=== PATIENT | male | born 1965 | race Caucasian/White ===

== ENCOUNTER → 2024-10-02 09:14 | Outpatient (REF) | payer OTHER, SELFPAY | LOC: MRI 3T 09:14 | PROVIDERS: ATTENDING PHYSICIAN Physician Assistant Surgical; FAMILY PHYSICIAN Family Medicine | DX: M25.512 Pain in left shoulder (principal) | CPT/HCPCS: 73221 ==

== ENCOUNTER 2024-11-29 06:20 | Day surgery (SDC) | payer OTHER, SELFPAY ==
[2024-11-08 13:43] VITALS: BMI 23.1
[2024-11-29] VITALS (8 sets, daily range): BP systolic 104–127; BP diastolic 65–89; BMI 23.1
[2024-11-29] MEDS: CELEBREX 200 MG PO (10:54)
[2024-11-29] MEDS: TYLENOL 1000 MG PO (10:54)
[2024-11-29] MEDS: NORMOSOL-R/PLASMALYTE-A 1000 IV (11:03)
== END 2024-11-29 15:47 | disposition home or self-care (01) ==
LOC: SDS 06:20
PROVIDERS: ATTENDING PHYSICIAN Specialist; FAMILY PHYSICIAN Family Medicine
DX: M75.102 Unspecified rotator cuff tear or rupture of left shoulder, not specified as traumatic (principal); M19.012 Primary osteoarthritis, left shoulder
CPT/HCPCS: 29827; 29824; 36415; 93005; C1713

== ENCOUNTER 2025-01-12 18:52 | Outpatient (RCR) | payer OTHER, SELFPAY | END 2025-01-12 23:59 | disposition home or self-care (01) | LOC: RPT 18:52 | PROVIDERS: ATTENDING PHYSICIAN Physician Assistant Surgical; FAMILY PHYSICIAN Emergency Medicine | DX: Z47.89 Encounter for other orthopedic aftercare (principal); Z73.6 Limitation of activities due to disability; M62.81 Muscle weakness (generalized); M25.512 Pain in left shoulder | CPT/HCPCS: 97010; 97110; 97163; 97530 ==

== ENCOUNTER 2025-01-23 08:59 | Outpatient (RCR) | payer OTHER, SELFPAY | END 2025-01-23 23:59 | disposition home or self-care (01) | LOC: RPT 08:59 | PROVIDERS: ATTENDING PHYSICIAN Physician Assistant Surgical; FAMILY PHYSICIAN Emergency Medicine | DX: Z47.89 Encounter for other orthopedic aftercare (principal); M62.81 Muscle weakness (generalized); M25.512 Pain in left shoulder; Z73.6 Limitation of activities due to disability | CPT/HCPCS: 97110; 97140 ==